=== PATIENT | male | born 2000 | race Two or more races ===

== ENCOUNTER 2018-10-08 20:25 | Emergency (ER) | payer OTHER ==
[2018-10-08] MEDS ORDERED: HYDROCODONE/ACETAMINOPHEN 5-325 MG TABLET PO ONE (21:46)
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
[2018-10-08] MEDS ORDERED: HYDROCODONE/ACETAMINOPHEN 5-325 MG (6 TAB/ER DISP) PO PRN (22:38)
[2018-10-08 23:03] VITALS: BP 124/73
== END 2018-10-08 23:06 | disposition home or self-care (01) ==
LOC: ER 20:25
DX: R07.81 Pleurodynia (principal); M54.5 Low back pain
CPT/HCPCS: 71111; 72110; 99283